=== PATIENT | female | born 1990 | race African-American/Black ===

== ENCOUNTER 2023-05-18 10:25 | Outpatient (AMB) | payer BC, SELFPAY ==
[2023-05-18 10:47] VITALS: BP 128/74; PULSE 74; TEMP 36.6; O2SAT 98; BMI 34.7
--- NOTE | 2023-05-18 10:47 | AM.OFFWIN_ITS ---
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 1x week Patient Tobacco Use Status: Current someday Tobacco user Allergies iodine Allergy (Mild, Verified 05/18/23 10:49) Vomiting Do you need a note to return to daycare/school/sports/work: Yes HPI HPI Comments History of Present Illness Details This is a 33-year-old female with no stated past medical history, , LNMP March 2023 presenting for evaluation of breast tenderness and lower abdominal discomfort that she has had over the past 2 weeks. Patient reports her abdominal discomfort is like period cramps but I am not bleeding. The patient reports mild nausea without vomiting, hematuria or vaginal discharge. Patient states that she took 3 test at home yesterday, all of which were positive. 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 [facility] Social History Patient Tobacco Use Status: Current someday Tobacco user Review of Systems Const Denies chills, Denies fatigue and Denies fever(s) Card Denies dyspnea Resp Denies cough and Denies dyspnea GI Reports abdominal pain (lower abdominal discomfort), Reports nausea and Denies vomiting Reports no additional complaints, Reports abnormal menses, Reports amenorrhea, Denies light periods and Denies nipple discharge Skin/Breast Denies nipple discharge Psych Reports no additional complaints Endo Denies fatigue Physical Exam Vital Signs: Last Vital Signs Temp 97.9 F 05/18/23 10:47 Pulse 74 05/18/23 10:47 BP 128/74 05/18/23 10:47 Pulse Ox 98 05/18/23 10:47 BMI result Body Mass Index 34.7 Const Other: Patient is normotensive. General: cooperative, healthy appearing, comfortable, no acute distress, well developed, alert and awake Nutritional Appearance: overweight Orientation/consciousness: patient oriented x3 Limitations: no limitations Resp Effort & Inspection: normal respiratory effort, able to speak in complete sentences and no respiratory distress Auscultation: clear to auscultation bilaterally Cardio Rate: regular rate Rhythm: regular rhythm GI Inspection: Yes normal to inspection Palpation (GI): nontender and no guarding Auscultation: normal bowel sounds General: Yes no CVA tenderness Manual OB Exam: Deferred manual OB exam Back/Spine/Pelvis Back: no CVA tenderness Neuro General: patient oriented x3 Psych Appearance: grossly normal Mental Status: mental status grossly normal Insight: Good insight present (Psych) Judgement: Good judgement present (Psych) Results Reviewed Results Reviewed: Positive urine HCG Assessment & Plan Assessment & Plan (1) Currently in first trimester with unknown date of last menstrual period: Code(s): Z34.91 - Encounter for supervision of normal , unspecified, first trimester Plan: Patient was instructed to obtain vitamins,as she states this is a wanted . 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 Coding Level of Care Code New Pt Level 3 (80777) Diagnoses Currently in first trimester with unknown date of last menstrual period Z34.91 Time Spent (min) 15
== END 2023-05-18 11:44 | disposition home or self-care (01) ==
PROVIDERS: Visit Provider Physician Assistant
DX: R10.30 Lower abdominal pain, unspecified (principal); N64.4 Mastodynia; Z34.91 Encounter for supervision of normal pregnancy, unspecified, first trimester
CPT/HCPCS: 99203

== ENCOUNTER 2024-01-29 11:23 | Outpatient (AMB) | payer BC, SELFPAY ==
[2024-01-29 11:27] VITALS: BP 110/72; PULSE 81; TEMP 37.1; O2SAT 98; BMI 39.9
--- NOTE | 2024-01-29 11:27 | MHC.OFFWIV ---
Intake Vital Signs 01/29/24 11:27 Height 5 ft 2 in Weight 218 lb BMI 39.9 BP 110/72 Blood Pressure Location Lt brachial Position Sitting Pulse 81 Pulse Source Pulse Oximeter Temp 98.7 F Temp Source Temporal Artery Scan Pulse Oximetry (%) 98 Oxygen Delivery Method Room Air Intake Visit Reasons: EP ? UTI Intake Note: pt is here today for UTI started 1 week ago Patient Tobacco Use Status: Current someday Tobacco user Allergies iodine Allergy (Mild, Verified 01/29/24 11:35) Vomiting Do you need a note to return to daycare/school/sports/work: No HPI EP ? UTI HPI Details Patient is a 34-year-old female comes to the walk-in clinic complaining of urinary frequency and dysuria. She denies abdominal pain, back pain flank pain, gross hematuria, nausea vomiting or diarrhea, fever chills, malaise or myalgias, dizziness or weakness, or other associated symptoms. No prior complicated UTIs. She denies , willing to do test today. No pertinent Past medical history. [facility] Social History Patient Tobacco Use Status: Current someday Tobacco user Review of Systems Const All systems reviewed & are unremarkable except as noted in HPI and below Physical Exam Vital Signs: Last Vital Signs Temp 98.7 F 01/29/24 11:27 Pulse 81 01/29/24 11:27 BP 110/72 01/29/24 11:27 Pulse Ox 98 01/29/24 11:27 Oxygen Delivery Method Room Air 01/29/24 11:27 BMI result Body Mass Index 39.9 Results AMB Urinalysis, Automated UA Leukoctes 125 Max/uL Last Edit by CARMEN Charles on 01/29/24 11:38 UA Nitrite Negative Last Edit by CARMEN Charles on 01/29/24 11:38 UA Urobilinogen 0.2 mg/dL Last Edit by CARMEN Charles on 01/29/24 11:38 UA Protein 30 mg/dL Last Edit by CARMEN Charles on 01/29/24 11:38 UA pH 7.0 Last Edit by CARMEN Charles on 01/29/24 11:38 UA Blood 0 Gamal/uL Last Edit by CARMEN Charles on 01/29/24 11:38 UA Specific [place] 1.015 Last Edit by CARMEN Charles on 01/29/24 11:38 UA Ketone Negative Last Edit by CARMEN Charles on 01/29/24 11:38 UA Bilirubin 0 mg/dL Last Edit by CARMEN Charles on 01/29/24 11:38 UA Glucose 0 mg/dL Last Edit by CARMEN Charles on 01/29/24 11:38 AMB Test Urine AMB Test Urine Negative Last Edit by CARMEN Charles on 01/29/24 12:10 Results Reviewed Results Reviewed: Laboratory Last Values Urine pH (Auto) 7.0 01/29/24 11:37 Specific [place] (Auto) 1.015 01/29/24 11:37 Urine Protein (Auto) 30 mg/dL 01/29/24 11:37 Glucose (UA)(Auto) 0 mg/dL 01/29/24 11:37 Urine Ketones (Auto) Negative 01/29/24 11:37 Urine Blood (Auto) 0 Gamal/uL 01/29/24 11:37 Urine Nitrite (Auto) Negative 01/29/24 11:37 Urine Bilirubin (Auto) 0 mg/dL 01/29/24 11:37 Urine Urobilinogen (Auto) 0.2 mg/dL 01/29/24 11:37 Leukocyte Esterase (Auto) 125 Max/uL 01/29/24 11:37 Tst Clinic Negative 01/29/24 12:09 Only pertinent for leukocytes Assessment & Plan Assessment & Plan (1) UTI (urinary tract infection): Code(s): N39.0 - Urinary tract infection, site not specified Qualifiers: Urinary tract infection type: acute cystitis Hematuria presence: without hematuria Qualified Code(s): N30.00 - Acute cystitis without hematuria Plan: Patient is a 34-year-old female with apparent acute uncomplicated cystitis. Wrote her for a course of Macrobid, and advised she get adequate fluid intake. She is overall healthy with no underlying issues. She was negative for today. She will follow up if symptoms persist with PCP, or can return to the walk-in as needed Orders: Orders AMB Urinalysis Automated 01/29/24 Z13.9 - Encounter for screening, unspecified AMB HCG Urine Test 01/29/24 Z32.02 - Encounter for test, result negative Medications: New nitrofurantoin monohyd/m-cryst 100 mg (Macrobid) must administer with a meal/food 100 mg PO Q12H 5 days 10 caps 0RF N39.0 - Urinary tract infection, site not specified Coding Level of Care Code Est Pt Level 4 (12694) Diagnoses Acute cystitis without hematuria N30.00 Urinary tract infection type: acute cystitis Hematuria presence: without hematuria
== END 2024-01-29 12:30 | disposition home or self-care (01) ==
PROVIDERS: Visit Provider Physician Assistant Medical
DX: Z32.02 Encounter for pregnancy test, result negative (principal); N30.00 Acute cystitis without hematuria
CPT/HCPCS: 81003; 81025; 99214

== ENCOUNTER 2024-08-17 09:20 | Outpatient (AMB) | payer BC, SELFPAY ==
--- NOTE | 2024-08-17 10:12 | AM.OFFWIN_ITS ---
Intake Vital Signs 08/17/24 10:15 Height 5 ft 2 in Weight 197 lb BMI 36.0 BP 118/80 Blood Pressure Location Lt brachial Position Sitting Pulse 102 H Pulse Source Pulse Oximeter Pulse Oximetry (%) 98 Oxygen Delivery Method Room Air Intake Visit Reasons: EP Pain on RT eye, irritated Intake Note: Patient here for right eye swelling and irritation that started yesterday. she states theres a white dot on the eye. she states she is 4 months . Patient Tobacco Use Status: Current someday Tobacco user Allergies iodine Allergy (Mild, Verified 08/17/24 10:17) Vomiting Do you need a note to return to daycare/school/sports/work: No HPI HPI Comments History of Present Illness Details History of Present Illness - The patient is a 34-year-old female pr esenting with eye pain and irritation. - Eye irritation started the previous ni ght with worsening pain by the next day and sensitivity to light. - A sensation of sand in the eye was not ed, prompting removal of eyelashes by the patient. - Contacts are worn regularly by the pat ient, suggesting a possible exacerbating factor for anterior eye irritation. - No changes in visual acuity were repor keenan, although sustained focus in one direction increased discomfort. Physical Exam General: Cooperative, healthy appearing, comfortable, no acute distress and well developed Orientation: Patient oriented x3 Limitations: No limitations Head: Normal to inspection Ears: Hearing grossly normal bilaterally Nose: Normal external nose present Face and sinus: Normal facial exam Eyes: as below Neck: Normal visual inspection and Yes full ROM Respiratory: Normal respiratory effort and able to speak in complete sentences. Skin: No rashes or lesions noted Neuro: Patient oriented x3 Extremities: Normal to inspection [facility] Social History Patient Tobacco Use Status: Current someday Tobacco user Review of Systems Const All systems reviewed & are unremarkable except as noted in HPI and below Physical Exam Vital Signs: Last Vital Signs Pulse 102 H 08/17/24 10:15 BP 118/80 08/17/24 10:15 Pulse Ox 98 08/17/24 10:15 Oxygen Delivery Method Room Air 08/17/24 10:15 BMI result Body Mass Index 36.0 Eyes General: appearance normal, both eyes and all related structures Periorbital: periorbital findings normal Eyelids: Yes eyelids normal Conjunctivae: conjunctival abnormal right conjunctival injection Corneas: corneas abnormal on the right fluorescein used and abrasion curved and at the following clock position (3) and fluorescein used Pupils: Equal, round and reactive pupils present EOM: EOMs intact bilaterally Neuro Cranial nerves: Yes Equal, round and reactive pupils present Office Procedures Fluorescein eye exam Details: Applied 2 drops tetracaine eye numbing drops, applied dye and looked under blue light to find small corneal abrasion at 3 o'clock. Assessment & Plan Assessment & Plan (1) Corneal abrasion, right: Code(s): S05.01XA - Injury of conjunctiva and corneal abrasion without foreign body, right eye, initial encounter Qualifiers: Encounter type: initial encounter Qualified Code(s): S05.01XA - Injury of conjunctiva and corneal abrasion without foreign body, right eye, initial encounter Plan: Corneal abrasion, likely contact lens-related, was presumed and initial therapeutic steps involved numbing drops for temporary discomfort relief, facilitating inspection for abrasions. The therapeutic intervention was ciprofloxacin drops, allotted at specified intervals aiding in optical symptom management and infection prevention. Instructions were clear on progression and necessity for further care upon symptom aggravation. If the patient experiences any change in her vision, worsening eye pain or pressure, she should seek immediate intervention with an senior market intelligence consultant or the emergency department. Work leave was provisionally managed by frontend engineer facilitation for documental support related to the diagnosis. Patient was informed and verbally consented to the use of an ambient scribe for clinic note documentation during this visit. Medications: New ciprofloxacin HCl 0.3% 1 - 2 drops into the right eye four times a day 5 days 5 mL 0RF Coding Level of Care Code New Pt Level 4 (44075) Diagnoses Abrasion of right cornea, initial encounter S05.01XA Encounter type: initial encounter
[2024-08-17 10:15] VITALS: BP 118/80; PULSE 102; O2SAT 98; BMI 36.0
--- OUTSIDE RECORDS SUMMARY | 2024-08-17 10:16 | XMS_ITS | Continuity of Care Document ---
Author Organization [place] - [facility], [facility] Address [address] [place] [address] Care Team Providers Care It Quality Analyst Name Role Phone [facility] Care Provider Assessment Encounter Date Assessment Date Assessment LastModified by Organization Details LastModified Time 05/18/2024 05/18/2024 34-year-old female 2 years status post extraction of third molars with persistent sensation of pressure and drainage from the left side. Examination shows moderate turbinate hypertrophy. Nasal endoscopy shows edema of the left lateral nasal wall with mucoid secretions suggestive of chronic maxillary sinusitis. I have recommended 3 weeks of doxycycline with probiotics and consistent use of fluticasone nasal spray 2 sprays each nostril daily. Follow-up in [address] of the sinuses if the sinus does not clear we may need to consider surgical drainage [email or web address] Not available 05/18/2024 11:17:10 Plan of Treatment Reminders Order Date Submit Date Provider Last Modified By Organization Details Last Modified Time Details Appointments None recorded. Lab None recorded. Referral None recorded. Procedures None recorded. Surgeries None recorded. Imaging CT, maxillofaci al, w/o contrast 2023 024 [email or web address] [facility], [address] [place], [address], 08:50:44 Medication Orders doxycycline hyclate 100 mg tablet 2023 024 [facility] #[id number], [address] [place], [id number], 4 11:18:37 fluticasone propionate 50 mcg/actuati on nasal spray,suspe nsion 2023 [facility] #[id number], [address] [place], [id number], 11:18:35 Culturelle 10 billion cell capsule 2023 [facility] #[id number], [address] [place], [id number], 11:18:33 Patient TargetsNo targets recorded. Patient InstructionsNo instructions recorded. Reason for Referral None Reported. Problems Name Problem SNOMED Code Status Onset Date Resolution Date Notes Provider Name and Address Organization Details Recorded Time Chronic maxillary sinusitis 50797668 Active JULIA VICENTE MD [address] [place] [address], [phone], [facility] - [facility] 11:17:16 Chronic sinusitis 28426143 Active JULIA VICENTE MD [address] [place] [address], [phone], [facility] - [facility] 11:17:32 Posterior rhinorrhea 21003735 Active JULIA VICENTE MD [address] [place] [address], [phone], [facility] - [facility] 4 11:19:30 Problem Notes None recorded. Procedures Surgical History Date Name Laterality Status Provider Name and Address Organization Details Recorded Time JMSNasal/Sinus Endoscopy completed JULIA RO MD [address] [place] [address], [phone], [facility] - [facility] [place] 05/18/2024 11:16:09 surgical removal of third molar tooth completed JULIA RO MD [address],[facility], [place], [phone], [place] - [facility] 05/18/2024 11:14:57 reduction plasty of bilateral breasts completed JULIA RO MD [address],[facility], [place], [address], [place] [facility] 05/18/2024 11:15:15 Imaging Results None recorded. Procedure Notes None recorded. Medical Equipment None Reported. Allergies Allergen ID Allergen Name Allergen Category Reaction Reaction Severity Criticality Documentation Date Start Date Code Code System Note Provider Name and Address Organization Details Recorded Time 843894 iodine medicatio n Not available Not available Not available 05/18/2024 5933 RxNorm Uri [place] - [facility] 10:37:37 Medications Name Sig Start Date Stop Date Status Note LastModified by Organization Details LastModified Time misoprostol 200 mcg tablet active Not Available Not Available Not Available Culturelle 10 billion cell capsule Take 1 capsule twice a day by oral route for 30 days. 2023 active Not Available Not Available Not Avai lable fluticasone propionate 50 mcg/actuatio n nasal spray,suspen andrew Thousandsticks 2 sprays every day by intranasal route for 30 days. 2023 active Not Available Not Available Not Avai lable doxycycline hyclate 100 mg tablet Take 1 tablet twice a day by oral route for 20 days. 2023 active Not Available Not Available Not Avai lable nitrofuranto in monohydrate/ macrocrystal s 100 mg capsule TAKE 1 CAPSULE BY MOUTH EVERY 12 HOURS FOR 5 DAYS WITH MEAL OR FOOD active Not Available Not Available No t Available WesTab Plus 27 mg iron-1 mg tablet TAKE 1 TABLET BY MOUTH EVERY DAY active Not Available Not Available No t Available Vitals Date Recorded Body height Body mass index (BMI) Body weight Provider Name and Address Organization Details Last Updated DateTime 05/18/2024 157.48 cm 38 kg/m2 43146.21 g Uri Piedra [facility] 05/18/2024 10:37:20 Social History None recorded. Functional Status None recorded. Mental Status None recorded. Family History Nothing Reported. Medical History No medical history recorded. Gynecological HistoryNo gynecological history recorded. Obstetrics History GPAL:G 0 P 0 0 0 0 Past Encounters Encounter ID Performer Location Encounter Start Date Encounter Closed Date Diagnosis/Indication Diagnosis SNOMED-CT Code Diagnosis ICD10 Code Diagnosis Note [id number] JULIA WELLS MD [facility] [address] [address] 05/18/2024 10:16:15 05/18/2024 11:23:19 Chronic maxillary sinusitis 67219775 J32.0 Endoscopic Sinus surgery brochure Chronic sinusitis 933141 00 J32.8 Posterior rhinorrhea 758 52209 R09.82 Health Concerns Section Related Observation LastModified by Organization Detai ls LastModified Time None Recorded Concern Status LastModified by Organization Details LastModified Time None Recorded Payers Encounter Date Sequence Insurance Name Policy Number Policy Allen Covered Member ID Allen Member ID Guarantor Name 05/18/2024 1 [place] [id number] 3 Tracy Agosto [id number] Tracy Agosto Notes Date Note Type Note Provider Name and Address Organization Details Recorded Time 05/18/2024 text/html 34-year-old otherwise healthy female reports persistent sensation of sinus pressure and discharge from the left maxillary region for the last 2 years following third molar extractions. She has been on nasal steroids but no recent course of antibiotics. She notes the drainage can be foul in odor. JULIA RO MD [address] [place] [address], [phone], [place] - [facility] 05/18/2024 11:19:45 OBGyn Episode No OBEpisode recorded.
== END 2024-08-17 10:50 | disposition home or self-care (01) ==
PROVIDERS: Visit Provider Physician Assistant
DX: S05.01XA Injury of conjunctiva and corneal abrasion without foreign body, right eye, initial encounter (principal)

== ENCOUNTER → 2024-08-17 09:20 | Outpatient (BNVA) | payer BC, SELFPAY | PROVIDERS: Visit Provider Physician Assistant ==